=== PATIENT | female | born 1990 | race Caucasian/White ===

== ENCOUNTER 2016-09-22 20:11 | Emergency (ER) | payer MEDICAID ==
[~2016-09-22] VITALS: Ht 160 cm; Wt 77.1 kg
[2016-09-22 20:42] VITALS: BP 153/54
[2016-09-22] MEDS ORDERED: diphenhydrAMINE 50 MG/ML VIAL IM ONE (22:35)
[2016-09-22] MEDS ORDERED: methylPREDNISolone SS 125 MG in WATER STERILE 2 ML IM ONE (22:35)
--- NOTE | 2016-09-22 22:37 | NUR ---
PT TAKEN TO [facility]
--- NOTE | 2016-09-22 22:37 | NUR ---
PATIENT PRESENTS TO ED WITH ALLERGIC RXN TO HAIR BLEACH X 1 DAY O2SAT 97% RR18 BREATHIG UNLABORED. PT DENIES N/V/D; SKIN IS PINK/WARM/DRY; AAOX4 WITH EVEN AND STEADY GAIT; LUNGS CLEAR BL; HR EVEN AND REGULAR; PT DENIES ANY FEVER, CP, SOB, OR COUGH AT THIS TIME; VSS; PATIENT POSITIONED FOR COMFORT; HOB ELEVATED; BEDRAILS UP X2; BED DOWN. ER MD MADE AWARE OF PT STATUS.
--- NOTE | 2016-09-22 22:39 | NUR ---
Dr. Forte evaluating patient
[2016-09-22 22:49] VITALS: BP 144/69
--- NOTE | 2016-09-22 22:49 | NUR ---
Patient discharged with v/s stable. Written and verbal after care instructions given and explained. Patient alert, oriented and verbalized understanding of instructions. Ambulatory with steady gait. All questions addressed prior to discharge. ID band removed. Patient advised to follow up with PMD. Rx of MEDROL DOSE PACK given. Patient educated on indication of medication including possible reaction and side effects. Opportunity to ask questions provided and answered.
== END 2016-09-22 22:49 | disposition home or self-care (01) ==
LOC: MED 20:11
DX: L25.3 Unspecified contact dermatitis due to other chemical products (principal); T54.94XA Toxic effect of unspecified corrosive substance, undetermined, initial encounter; Y92.89 Other specified places as the place of occurrence of the external cause
CPT/HCPCS: 99283; J2930; J1200